=== PATIENT | male | born 1975 ===

== ENCOUNTER 2022-07-21 15:17 | Inpatient (IN) | payer MEDICAID ==
[2022-07-21] MEDS ORDERED: HALOPERIDOL LACTATE 5 MG/ML 1 ML VIAL IM PRN (21:27)
[2022-07-21] MEDS ORDERED: MAG HYDROX/AL HYDROX/SIMETH 30 ML CUP PO PRN (21:27)
[2022-07-21] MEDS ORDERED: MAGNESIUM HYDROXIDE 2,400 MG/10 ML CUP PO PRN (21:27)
--- NOTE | 2022-07-22 02:12 | P.CONS ---
History of Present Illness - Reason for Consult Consult date: 07/22/22 - History of Present Illness The patient is a 47-year-old male who was transferred to the mental health unit from another facility for the patient reports he was admitted after his mother petitioned him for concerns that he may harm himself. The patient reports that he did not wish to hurt himself and had no specific plan. He does report a chronic history of hypertension for which she takes medications but is unable to recall the names. He also reports using marijuana daily and smoking half pack of cigarettes daily. 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 Denied any physical complaints at the time of interview. Denied experiencing chest discomfort, shortness of breath, chills, cough, nausea, vomiting, abdominal pain, diarrhea. Review of systems: Pertinent positives and negatives as discussed in HPI, a complete review of systems was performed and all other systems are negative. Physical examination: General: non toxic, no distress, appears at stated age, normal weight Derm: no unusual rashes/lesions, no unusual ecchymoses, warm, dry Head: atraumatic, normocephalic, symmetric Eyes: EOMI, no lid lag, anicteric sclera ENT: Nose and ears atraumatic, no thrush, no pharyngeal erythema Neck: trachea midline, supple Mouth: no lip lesion, mucus membranes moist Cardiovascular: S1S2 reg, no murmur, no edema Lungs: CTA bilateral, no rhonchi, no rales , no accessory muscle use Abdominal: soft, nontender to palpation, no guarding Ext: no gross muscle atrophy, no contractures, right claw hand deformity Neuro: No gross focal neuro deficits noted Psych: Alert, oriented, appropriate affect Assessment/plan Chronic conditions: Hypertension -resume home medications once confirmed Marijuana and tobacco abuse -Advised on importance of cessation Depression -as per psychiatry Thank you for allowing us to participate in the care of this patient. We will follow peripherally. Do not hesitate to contact us with questions. Someone can be reached from the [facility] hospitalist group at all hours of the day at [phone]. Past Medical History History of Any Multi-Drug Resistant Organisms: None Reported Past Anesthesia/Blood Transfusion Reactions: No Reported Reaction Smoking Status: Current every day smoker - Past Family History Mother Family Medical History: Hyperlipidemia Medications and Allergies Allergies Allergy/AdvReac Type Severity Reaction Status Date / Time No Known Allergies Allergy Verified 07/21/22 21:27 Physical Exam Vitals: Vital Signs Temp Pulse Resp BP Pulse Ox 07/21/22 23:28 98.4 F 63 18 160/102 99 Intake and Output 07/21/22 07/21/22 07/22/22 14:59 22:59 06:59 Other: Weight 68 kg 67.84 kg
[2022-07-22] MEDS: LABETALOL 200 MG TAB PO SCH ×2 (08:26→20:15)
[2022-07-22] MEDS: NICOTINE 14MG/24HR PATCH TRANSDERM SCH (08:26)
[2022-07-22] MEDS: lisinopriL 10 MG TAB PO SCH (08:26)
[2022-07-22] MEDS: FOLIC ACID 1 MG TAB PO SCH (08:26)
[2022-07-22] MEDS: PYRIDOXINE 50 MG TAB PO SCH (08:29)
--- NOTE | 2022-07-22 11:21 | P.HP ---
Psychiatric H&P - . H&P Date: 07/22/22 History & Physical: Allergies Allergy/AdvReac Type Severity Reaction Status Date / Time No Known Allergies Allergy Verified 07/21/22 21:27 Vital Signs Temp 97.4 F L 07/22/22 09:26 Pulse 81 07/22/22 08:00 Resp 20 07/22/22 08:00 BP 143/99 07/22/22 08:00 Pulse Ox 99 07/21/22 23:28 FiO2 Intake & Output 07/21/22 07/22/22 07/22/22 18:59 06:59 18:59 Weight 67.84 kg 07/22/22 11:15 This is a psychiatric assessment on Riki Stephen patient is a 47-year-old male who was transferred to the mental health unit from another facility for the patient reports he was admitted after his mother petitioned him for concerns that he may harm himself. The patient reports that he did not wish to hurt himself and had no specific plan. Patient reports that he was trying to express to his mother about some childhood issues which she refused to discuss Patient states that things like that make him suicidal and that his mother overreacted and had him committed He admits that he has made several other suicide attempts in the past where he has cut on himself on his left arm He does report a chronic history of hypertension for which she takes medications but is unable to recall the names. He also reports using marijuana daily and smoking half pack of cigarettes daily. 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 Denied any physical complaints at the time of interview. He states that he has been in outpatient treatment in the past and would like to restart He states that he is currently on disability and also gets SSDI He states that he has 3 children from previous relationships and also gives child support He says that he currently lives with his mother always not sure if he is able to go back there after his release from the hospital Past history personal and social history: Is covered above Patient states that he used to drink before but does not have a problem at this time He admits that he uses medical marijuana on a daily basis He states that he does not have too many hobbies and usually keeps to himself Mental status examination: General Appearance: Patient appears to be stated age, is disheveled, unshaven, long hair Orientation: he is alert, oriented to person, place, time. Behavior: Patient is sitting in the lounge room and was cooperative during the interview Speech: Patient's speech is fluent and nonpressured. Mood/Affect: Mood is calm, Suicidality/Homicidality: Patient denies having any suicidal or homicidal ideation intent or plan. Perceptions: Patient denies any visual hallucinations and denies any auditory hallucinations. Though content: There is evidence of paranoid delusional thought content, Thought process: Goal-directed sequential and logical Memory and concentration: Grossly intact for the purposes of this session. Judgment and insight: Impaired, concrete Diagnostic impression: Major depressive disorder unspecified Personality disorder with borderline traits Cannabis use disorder unspecified Interpersonal family conflicts/relationship problems Plan: -Patient continues to meet criteria for inpatient psychiatric admission for symptom stabilization and safety. -Medications: We'll start patient Celexa 10 mg daily to start within titrated to response Discussed effects and side effects with the patient -When necessary Ativan and Haldol for agitation/aggression. -NRT - nicotine patch -SW on board for discharge planning. Encouraged the patient to participate in milieu. [
[2022-07-22] MEDS: CITALOPRAM HYDROBROMIDE 10 MG TAB PO SCH (15:38)
[2022-07-22 16:34] LABS: Chol/HDL Ratio 4.34 Ratio; LDL Cholesterol,Calculated 103.5 mg/dL (0.0-131.0)
[2022-07-22] MEDS: LIDOCAINE 5% PATCH TOPICAL SCH (16:50)
[2022-07-22] MEDS: ACETAMINOPHEN TAB 325 MG TAB PO PRN (18:59)
[2022-07-23] MEDS: LORazepam 1 MG TAB PO PRN ×2 (00:49→20:43)
[2022-07-23 01:08] VITALS: BP 177/115; PULSE 72; RESP 16; TEMP 97.7
[2022-07-23] MEDS: PYRIDOXINE 50 MG TAB PO SCH (08:29)
[2022-07-23] MEDS: CITALOPRAM HYDROBROMIDE 10 MG TAB PO SCH (08:29)
[2022-07-23] MEDS: FOLIC ACID 1 MG TAB PO SCH (08:29)
[2022-07-23] MEDS: LABETALOL 200 MG TAB PO SCH ×2 (08:29→20:43)
[2022-07-23] MEDS: lisinopriL 10 MG TAB PO SCH (08:29)
[2022-07-23] MEDS: NICOTINE 14MG/24HR PATCH TRANSDERM SCH (08:58)
[2022-07-23] MEDS: ACETAMINOPHEN TAB 325 MG TAB PO PRN ×2 (08:58→17:57)
[2022-07-23] MEDS ORDERED: ARIPiprazole 5 MG TAB PO STA (10:06)
[2022-07-23] MEDS: LIDOCAINE 5% PATCH TOPICAL SCH (10:20)
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
[2022-07-23] MEDS: ONDANSETRON ODT 4 MG TAB PO PRN (12:36)
[2022-07-23] MEDS: cloNIDine HCL 0.1 MG TAB PO SCH (20:43)
[2022-07-24] MEDS: cloNIDine HCL 0.1 MG TAB PO SCH (08:19)
[2022-07-24] MEDS: CITALOPRAM HYDROBROMIDE 10 MG TAB PO SCH (08:19)
[2022-07-24] MEDS: NICOTINE 14MG/24HR PATCH TRANSDERM SCH (08:19)
[2022-07-24] MEDS: lisinopriL 10 MG TAB PO SCH (08:19)
[2022-07-24] MEDS: PYRIDOXINE 50 MG TAB PO SCH (08:19)
[2022-07-24] MEDS: FOLIC ACID 1 MG TAB PO SCH (08:19)
[2022-07-24] MEDS: LIDOCAINE 5% PATCH TOPICAL SCH (08:20)
[2022-07-24] MEDS: LABETALOL 200 MG TAB PO SCH (08:20)
[2022-07-24] MEDS: ACETAMINOPHEN TAB 325 MG TAB PO PRN (08:21)
[2022-07-24] MEDS: ONDANSETRON ODT 4 MG TAB PO PRN (08:47)
[2022-07-24] MEDS ORDERED: ARIPiprazole 15 MG TAB PO SCH (09:00)
--- NOTE | 2022-07-24 14:22 | P.DS ---
Providers Date of admission: 07/21/22 21:58 Expected date of discharge: 07/24/22 Attending physician: Anton Augustin MD Consults: 07/21/22 21:27 Consult Physician Routine Consulting Provider: Benedicto Mcgrath Consult Reason/Comments: medical management Do you want consulting provider notified?: Yes Primary care physician: Stated None - Discharge Diagnosis(es) (1) Severe recurrent major depression w/psychotic features, mood-congruent Status: Acute Priority: High (2) Cluster B personality disorder Status: Chronic Priority: Medium (3) Cannabis use disorder Status: Chronic Priority: Medium Hospital Course: Admission HPI: This is a psychiatric assessment on Riki Stephen patient is a 47-year-old male who was transferred to the mental health unit from another facility for the patient reports he was admitted after his mother petitioned him for concerns that he may harm himself. The patient reports that he did not wish to hurt himself and had no specific plan. Patient reports that he was trying to express to his mother about some childhood issues which she refused to discuss Patient states that things like that make him suicidal and that his mother overreacted and had him committed He admits that he has made several other suicide attempts in the past where he has cut on himself on his left arm He does report a chronic history of hypertension for which she takes medications but is unable to recall the names. He also reports using marijuana daily and smoking half pack of cigarettes daily. 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 Denied any physical complaints at the time of interview. He states that he has been in outpatient treatment in the past and would like to restart He states that he is currently on disability and also gets SSDI He states that he has 3 children from previous relationships and also gives child support He says that he currently lives with his mother always not sure if he is able to go back there after his release from the hospital Hospital course: Upon admission to the unit patient was initially presenting as depressed and suicidal however cooperative. Patient was however directable and agreeable to commence treatment. Patient got along well with other patients on the unit and followed unit protocol. Patient was compliant with the medications and denied any side effects throughout hospital course. Patient was started on citalopram for depression/anxiety/PTSD, Abilify, and Catapres. On this regimen, the patient's with significant improvement regards to target symptoms of depression, anxiety, and suicidal ideation. Patient spoke of his stressors and engaged in therapy both group and individual. Patient was also seen by medical team for history and physical exam. Throughout the course of the hospitalization patient gradually improved with regards to depression and anxiety sleep and became future oriented with improved insight and judgment. On the day of discharge patient denied any suicidal or homicidal ideations intent or plan denied any auditory or visual hallucinations. Patient endorsed wanting to live for his health and family. The patient denied any access to guns or weapons. Patient denied any paranoia and did not endorse any delusions. Patient does not have a significant history of substance abuse however was counseled on abstaining from all substances including alcohol and marijuana. Patient was also counseled on the medications and need for regular compliance and was encouraged to follow-up with their outpatient appointment for mental health and also for primary care. Prior to discharge a family meeting will be arranged by family welfare social work professor to answer any questions and ensure safety upon discharge. Mental status exam: General Appearance: Patient appears to be stated age is alert, pleasant, and cooperative. Patient is in no acute distress and has fair hygiene and grooming Behavior: Patient is calmly seated without any agitated behavior. Speech: Patient's speech is fluent and nonpressured. Mood/Affect: Patient reports their mood is "much better", affect is congruent and euthymic. Suicidality/Homicidality: Patient denies having any suicidal or homicidal ideation intent or plan. Perceptions: Patient denies any auditory or visual hallucinations. Though content/process: There is no evidence of any delusional thought content and thought process is linear and goal-directed. Patient is future oriented. Memory and concentration: AOX3, grossly intact for the purposes of this session. Can spell "WORLD" backwards correctly. Judgment and insight: Improved with guarded prognosis Impression: Major depressive disorder, recurrent, severe, with psychotic features Cluster B personality traits Cannabis use disorder Plan: -Continue with discharge today as patient has improved and stabilized psychiatrically and is not currently an imminent threat to himself and/or others. Patient will remain at chronic elevated risk due to his history of chronic mental illness and nonadherence to treatment -Continue medications: Citalopram 10 mg by mouth daily Abilify 10 mg by mouth daily Catapres 0.2 mg by mouth twice a day Patient will be also sent home with medical medications including Zofran, lisinopril, Habitrol, and labetalol -Patient was counseled on the need for medication compliance and appropriate follow-up at mental health and also primary care for medical issues. Patient verbalized understanding and agreed. -Social work to arrange for and conduct family meeting to ensure safety upon discharge and answer any questions/concerns. Social work also to arrange for patients follow up appointments for psychiatric care along with follow up with primary care provider. -Patient counseled on abstaining from recreational drugs and marijuana and alcohol. Was informed/educated on the adverse effects on their physical and mental health. Patient verbally agreed and understood. -Patient was instructed to return to the hospital or seek immediate medical care if their psychiatric or medical symptoms do worsen or reoccur. -Psychoeducation and supportive therapy provided to patient. Risks and benefits of pharmacological treatment versus the risks and benefits of nontreatment weight and discussed. Informed consent discussion held. Common side effects of psychotropics discussed such as, but not limited to headache, GI disturbance, sexual dysfunction, movement disorders, sedation, and orthostatic hypotension. Life threatening and blackbox warnings of prescribed medications also discussed. Potential risks of operating a vehicle or heavy machinery discussed with patient at length. Advised on importance of compliance and a reliable and responsible manner. Patient advised to review FDA consumer labeling of all medications prior to taking. Patient verbalized understanding of potential risks, and agrees with current treatment plan. Patient advised to medically contact physician/emergency personnel if any acute changes in condition occur. Vital Signs Temp 97.7 F 07/23/22 01:07 Pulse 72 07/23/22 01:07 Resp 16 07/23/22 01:07 BP 177/115 07/23/22 01:07 Pulse Ox 100 07/23/22 01:07 FiO2 Laboratory Results Estimated Ave Glu mg/dL 113 07/22/22 12:31 Hemoglobin A1c 5.6 % (0.0-6.0) 07/22/22 12:31 Triglycerides 183.00 mg/dL (0.00-149.00) H 07/22/22 12:31 Cholesterol 182.00 mg/dL (0.00-200.00) 07/22/22 12:31 LDL Cholesterol, Calc 103.5 mg/dL (0.0-131.0) 07/22/22 12:31 VLDL Cholesterol, Calc 36.60 mg/dL (5.00-40.00) 07/22/22 12:31 HDL Cholesterol 41.90 mg/dL (40.00-60.00) 07/22/22 12:31 Cholesterol/HDL Ratio 4.34 Ratio 07/22/22 12:31 TSH 0.489 mIU/L (0.465-4.680) 07/22/22 12:31 Allergies Allergy/AdvReac Type Severity Reaction Status Date / Time No Known Allergies Allergy Verified 07/21/22 21:27 Patient Condition at Discharge: Stable Plan - Discharge Summary Discharge Rx Participant: No New Discharge Prescriptions: New Citalopram Hydrobromide [CeleXA] 10 mg PO DAILY 30 Days tab Labetalol [Trandate] 200 mg PO BID 30 Days tab Pyridoxine [Vitamin B-6] 50 mg PO DAILY 30 Days tab ARIPiprazole [Abilify] 10 mg PO DAILY 30 Days tab cloNIDine HCL [Catapres] 0.2 mg PO BID 30 Days tab Folic Acid 1 mg PO DAILY 30 Days tab Nicotine 14Mg/24Hr Patch [Habitrol] 1 patch TRANSDERM DAILY 30 Days patch lisinopriL [Zestril] 10 mg PO DAILY 30 Days tab Ondansetron [Zofran] 4 mg PO Q12HR PRN 3 Days #6 tab PRN Reason: nausea/vomiting Discharge Medication List ARIPiprazole [Abilify] 10 mg PO DAILY 30 Days tab 07/24/22 [Rx] Citalopram Hydrobromide [CeleXA] 10 mg PO DAILY 30 Days tab 07/24/22 [Rx] Folic Acid 1 mg PO DAILY 30 Days tab 07/24/22 [Rx] Labetalol [Trandate] 200 mg PO BID 30 Days tab 07/24/22 [Rx] Nicotine 14Mg/24Hr Patch [Habitrol] 1 patch TRANSDERM DAILY 30 Days patch 1 [Rx] Ondansetron [Zofran] 4 mg PO Q12HR PRN 3 Days #6 tab 07/24/22 [Rx] Pyridoxine [Vitamin B-6] 50 mg PO DAILY 30 Days tab 07/24/22 [Rx] cloNIDine HCL [Catapres] 0.2 mg PO BID 30 Days tab 07/24/22 [Rx] lisinopriL [Zestril] 10 mg PO DAILY 30 Days tab 07/24/22 [Rx] Follow up Appointment(s)/Referral(s): AMANDEEP James [Other] - 1 Week [facility] [Other] - 1 Week Patient Instructions/Handouts: How to Stop Smoking (DC), Depression (DC) Activity/Diet/Wound Care/Special Instructions: Avoid the use of street drugs and alcohol. Take all prescriptions as prescribed. When you are in need of refills on your medications, please contact your medical provider and/or outpatient psychiatrist to have this done. Please go to scheduled outpatient appointment for aftercare treatment. If symptoms return or become worse, call the crisis line at and/or go to the nearest emergency room for evaluation. Discharge Disposition: HOME SELF-CARE
[2022-07-24] MEDS ORDERED: cloNIDine HCL 0.2 MG TAB PO SCH (21:00)
== END 2022-07-24 13:33 | disposition home or self-care (01) | DRG 885 ==
LOC: 3MHU 21:58
PROVIDERS: ADMIT Psychiatry & Neurology Psychiatry; ATTEND Psychiatry & Neurology Psychiatry
DX: F33.3 Major depressive disorder, recurrent, severe with psychotic symptoms (principal); R45.851 Suicidal ideations; F12.10 Cannabis abuse, uncomplicated; Z71.51 Drug abuse counseling and surveillance of drug abuser; F17.210 Nicotine dependence, cigarettes, uncomplicated; F43.10 Post-traumatic stress disorder, unspecified; F60.89 Other specific personality disorders; F41.9 Anxiety disorder, unspecified; I10 Essential (primary) hypertension; M21.511 Acquired clawhand, right hand; S51.811S Laceration without foreign body of right forearm, sequela; Z63.9 Problem related to primary support group, unspecified; Z79.899 Other long term (current) drug therapy; Z91.51 Personal history of suicidal behavior
CPT/HCPCS: 80061; 83036; 84443